=== PATIENT | female | born 1975 ===

== ENCOUNTER 2024-04-24 05:15 | Day surgery (SDC) | payer OTHER ==
[2024-04-16 08:40] LABS: URINE APPEARANCE Cloudy; URINE BILIRRUBIN Negative (NEGATIVE); URINE BLOOD Negative; URINE COLOR Yellow; URINE GLUCOSE Negative (NEGATIVE); URINE KETONE Negative (NEGATIVE); URINE LEUKOCYTE Moderate; URINE NITRATE Positive; URINE PROTEIN Negative (NEGATIVE); URINE UROBILINOGEN 0.2 E.U./dl
[2024-04-16 08:41] LABS: HEMATOCRIT 35.8 % (36.0-45.00); HEMOGLOBIN 12.3 g/dL (12.0-15.00); MEAN CELL VOLUME 89.4 fL (80.00-100.00); MEAN CORPUSCULAR HEMOGLOBIN 30.6 pg (27.00-32.0); MEAN CORPUSCULAR HGB CONC 34.2 g/dl (32.0-36.0); PLATELET COUNT 167 K/uL (150-450); RED BLOOD COUNT 4.01 M/uL (4.00-6.00); RED CELL DISTRIBUTION WIDTH 14.1 % (11.5-14.5)
[2024-04-16 09:07] LABS: URINE EPITHELIAL CELLS 12.8 uL (0.0-38.8); URINE RBC 9.6 uL (0.0-20.8); URINE WBC 116.5 uL (0.0-23.2)
[2024-04-16 09:11] LABS: PARTIAL THROMBOPLASTIN TIME 28.6 SECONDS (22.0-34.0); PROTHROMBIN TIME 10.9 SECONDS (9.0-11.5)
[2024-04-16 09:13] VITALS: BP 125/75
[2024-04-16 09:42] LABS: URINE BACTERIA > 9821.5 uL (0.0-1933); URINE CAST 0.45 uL (0.0-1.40); URINE CRYSTALS MANY /HPF
[2024-04-16 09:55] LABS: ALBUMIN 3.7 gm/dL (3.4-5.0); BILIRUBIN TOTAL 0.25 mg/dL (0.3-1.2); CALCIUM 8.8 mg/dL (8.5-10.1); CREATININE SERUM 0.55 mg/dL (0.55-1.02); GFR 118.99; GLOBULINA 3.1 G/DL (2.4-3.5); POTASSIUM 3.74 mEq/L (3.5-5.1); TOTAL PROTEIN 6.8 gm/dL (6.4-8.2); TSH 1.53 uIU/mL (0.358-3.74)
[~2024-04-24 05:15] MED LIST: AMPYRA; MACROBID 100 M100 MG; PROVIGIL100 MG; SYNTHROID75 MCG PO; TOVIAZ; TYSABRI300 MG/15
[2024-04-24] MEDS ORDERED: PROMETHAZINE HCL 50 MG/ML AMPUL IM ONE (08:45)
[2024-04-24] MEDS ORDERED: MORPHINE SULFATE 4 MG/ML VIAL IV PRN (08:45)
[2024-04-24] MEDS ORDERED: CEFOXITIN SODIUM 2,000 MG VIAL IV ONE (08:45)
[2024-04-24] MEDS ORDERED: MORGIDOX100 MG PO (09:37)
[2024-04-24] MEDS ORDERED: NAPR500T14 PO (09:37)
== END 2024-04-24 10:55 | disposition home or self-care (01) ==
LOC: CIR.AMB 05:15
PROVIDERS: ATTEND Obstetrics & Gynecology
DX: N87.0 Mild cervical dysplasia (principal); N87.1 Moderate cervical dysplasia; N93.8 Other specified abnormal uterine and vaginal bleeding